=== PATIENT | male | born 1980 | race African-American/Black ===

== ENCOUNTER 2021-11-14 03:32 | Emergency (ER) | payer SELFPAY ==
[2021-11-14] MEDS ORDERED: diphenhydrAMINE 25 MG CAP ONE (03:59)
[2021-11-14] MEDS ORDERED: Acetaminophen 500 MG TAB ONE (03:59)
[2021-11-14] MEDS ORDERED: Ondansetron ODT 4 MG TAB ONE (03:59)
== END 2021-11-14 04:58 ==
LOC: BURERS 03:32
DX: B34.9 Viral infection, unspecified (principal); I10 Essential (primary) hypertension; F17.210 Nicotine dependence, cigarettes, uncomplicated; Z20.822 Contact with and (suspected) exposure to COVID-19
CPT/HCPCS: 87804; 99284; Q0162; U0003; U0005